=== PATIENT | female | born 1970 | race Caucasian/White ===

== ENCOUNTER 2017-10-19 08:56 | Outpatient (RCR) | payer BC ==
[~2017-10-19 08:56] MED LIST: ZYRTEC-D TABLE1 EACH PO
== END 2017-10-21 ==
LOC: PT 08:56
PROVIDERS: ATTEND Podiatrist Foot & Ankle Surgery
DX: M77.32 Calcaneal spur, left foot (principal); M62.81 Muscle weakness (generalized)